=== PATIENT | female | born 1980 | race Caucasian/White ===

== ENCOUNTER 2017-01-08 19:30 | Emergency (ER) | payer OTHER ==
[2017-01-08 21:10] LABS: Bilirubin,Urine NEG (Negative); Blood,Urine LG (Negative); Ketones,Urine NEG (Negative); Leukocyte Esterase,Urine LG (Negative); Nitrite,Urine NEG (Negative); Urobilinogen,Urine < 2.0 mg/dL (<2.0)
[2017-01-08 21:15] LABS: WBC,Urine > 182.0 /HPF (0.0-6.0)
[2017-01-08] MEDS ORDERED: PYRIDIUM PO ONE (22:13)
[2017-01-08] MEDS ORDERED: LEVAQUIN PO ONE (22:13)
--- NOTE | 2017-01-08 22:14 | Emergency Department Report ---
ED General Adult HPI - General Chief complaint: Urogenital-Female Stated complaint: PAINFUL URINATION Time Seen by Provider: 01/08/17 21:56 Source: patient Mode of arrival: Ambulatory Limitations: No Limitations - History of Present Illness Initial comments: Patient comes into the ER today with complaints of dysuria and hematuria. Patient states that 2 days ago she started with some discomfort on urination that progressed to worsening discomfort and some blood in her urine yesterday. Patient denies any fever, vomiting, diarrhea, back pain. Patient does state that she feels pressure in her lower abdomen and pelvic region. Patient does note that prior to her symptoms starting, she did have intercourse with her . Patient states she also feels like she has to void frequently. Patient notes that she has had this happen before back in her country of [place] and she was given medicine to make it go away. -: days(s) (2) - Related Data Previous Rx's Medication Instructions Recorded Last Taken Type Ciprofloxacin HCl [Ciprofloxacin 500 mg PO Q12HR #14 tab 01/08/17 Unknown Rx TAB] Phenazopyridine [Pyridium] 200 mg PO TID #12 tab 01/08/17 Unknown Rx Allergies Allergy/AdvReac Type Severity Reaction Status Date / Time No Known Allergies Allergy Unverified 01/08/17 19:55 ED Review of Systems ROS: Stated complaint: PAINFUL URINATION Other details as noted in HPI Constitutional: denies: chills, fever Eyes: denies: eye pain, eye discharge, vision change ENT: denies: ear pain, throat pain Respiratory: denies: cough, shortness of breath, wheezing Cardiovascular: denies: chest pain, palpitations Endocrine: no symptoms reported Gastrointestinal: denies: abdominal pain, nausea, vomiting, diarrhea Genitourinary: urgency, dysuria, frequency, hematuria. denies: discharge Musculoskeletal: denies: back pain, joint swelling, arthralgia Skin: denies: rash, lesions Neurological: denies: headache, weakness, paresthesias Psychiatric: denies: anxiety, depression Hematological/Lymphatic: denies: easy bleeding, easy bruising ED Past Medical Hx - Past Medical History Previous Medical History?: No - Surgical History Past Surgical History?: No - Social History Smoking Status: Never Smoker Substance Use Type: None - Medications Home Medications: Home Medications Medication Instructions Recorded Confirmed Last Taken Type Ciprofloxacin HCl [Ciprofloxacin 500 mg PO Q12HR #14 tab 01/08/17 Unknown Rx TAB] Phenazopyridine [Pyridium] 200 mg PO TID #12 tab 01/08/17 Unknown Rx ED Physical Exam - General Limitations: No Limitations General appearance: alert, in no apparent distress - Head Head exam: Present: atraumatic, normocephalic - Eye Eye exam: Present: normal appearance - ENT ENT exam: Present: mucous membranes moist - Neck Neck exam: Present: normal inspection - Respiratory Respiratory exam: Present: normal lung sounds bilaterally. Absent: respiratory distress - Cardiovascular Cardiovascular Exam: Present: regular rate, normal rhythm, normal heart sounds. Absent: systolic murmur, diastolic murmur, rubs, gallop - GI/Abdominal GI/Abdominal exam: Present: soft, tenderness (very mild suprapubic discomfort), normal bowel sounds. Absent: distended, guarding, rebound, rigid - Extremities Exam Extremities exam: Present: normal inspection - Back Exam Back exam: Present: normal inspection. Absent: tenderness, CVA tenderness (R), CVA tenderness (L) - Neurological Exam Neurological exam: Present: alert, oriented X3, CN II-XII intact, normal gait - Psychiatric Psychiatric exam: Present: normal affect, normal mood - Skin Skin exam: Present: warm, dry, intact, normal color. Absent: rash ED Course Vital Signs 01/08/17 19:50 Temperature 98.3 F Pulse Rate 76 Respiratory 18 Rate Blood Pressure 120/74 O2 Sat by Pulse 100 Oximetry ED Medical Decision Making - Lab Data Lab Results 01/08/17 Range/Units 20:30 Urine Color Yellow (Yellow) Urine Turbidity Cloudy (Clear) Urine pH 7.0 (5.0-7.0) Ur Specific [place] 1.008 (1.003-1.030) Urine Protein 100 mg/dl (Negative) mg/dL Urine Glucose (UA) Neg (Negative) mg/dL Urine Ketones Neg (Negative) mg/dL Urine Blood Lg (Negative) Urine Nitrite Neg (Negative) Ur Reducing Substances Not Reportable Urine Bilirubin Neg (Negative) Urine Ictotest Not Reportable Urine Urobilinogen < 2.0 (<2.0) mg/dL Ur Leukocyte Esterase Lg (Negative) Urine WBC (Auto) > 182.0 H (0.0-6.0) /HPF Urine RBC (Auto) 72.0 (0.0-6.0) /HPF U Epithel Cells (Auto) 1.0 (0-13.0) /HPF Urine WBC Clumps 3+ /HPF Amorphous Crystals Few Urine HCG, Qual Negative (Negative) - Medical Decision Making Patient is nontoxic and hemodynamically stable. Urine results reviewed and discussed with patient in room. Patient does not have any CVA tenderness, upper abdominal pain, fever, or any signs or concerns suggestive of pyelonephritis or kidney stones. I believe patient's hematuria is related to her urinary tract infection. I have encouraged patient to continue drinking plenty of fluids to flush her system and to avoid after any intercourse in the future. Patient was given a dose of antibiotics as well as Pyridium here in the ER and I will continue her on outpatient antibiotics. Patient is in agreement with treatment plan and patient is stable for discharge. Critical care attestation.: If time is entered above; I have spent that time in minutes in the direct care of this critically ill patient, excluding procedure time. ED Disposition Clinical Impression: UTI (urinary tract infection) Disposition: DC-01 TO HOME OR SELFCARE Is pt being admited?: No Does the pt Need Aspirin: No Condition: Good Instructions: Urinary Tract Infection in Women (ED) Prescriptions: Ciprofloxacin HCl [Ciprofloxacin TAB] 500 mg PO Q12HR #14 tab Phenazopyridine [Pyridium] 200 mg PO TID #12 tab Referrals: PRIMARY CARE, [Primary Care Provider] - 3-5 Days Time of Disposition: 22:45
[2017-01-08 22:57] VITALS: BP 133/88
[2017-01-08] MEDS ORDERED: ZOFRAN ODT ONE (22:57)
[2017-01-08] MEDS ORDERED: ZOFRAN ODT PO ONE (22:57)
== END 2017-01-08 22:59 | disposition home or self-care (01) ==
LOC: ED 19:30
DX: N39.0 Urinary tract infection, site not specified (principal)
CPT/HCPCS: 81001; 81025; 99283; Q0162

== ENCOUNTER 2017-02-01 18:49 | Emergency (ER) | payer OTHER ==
[2017-02-01 21:22] LABS: Basophils % (Auto) 0.6 % (0.0-1.8); Eosinophils % (Auto) 4.8 % (0.0-4.3); Hematocrit 36.3 % (30.3-42.9); Hemoglobin 12.2 gm/dl (10.1-14.3); Mean Corpuscular HGB Conc 34 % (30-34); Mean Corpuscular Hemoglobin 31 pg (28-32); Mean Corpuscular Volume 93 fl (79-97); Platelet Count 225 K/mm3 (140-440); Red Cell Distribution Width 13.5 % (13.2-15.2); White Blood Count 9.4 K/mm3 (4.5-11.0)
[2017-02-01 21:36] LABS: Bilirubin,Urine NEG (Negative); Blood,Urine LG (Negative); Ketones,Urine NEG (Negative); Leukocyte Esterase,Urine LG (Negative); Nitrite,Urine NEG (Negative); Protein,Urine <15 mg/dL mg/dL (Negative); Urobilinogen,Urine < 2.0 mg/dL (<2.0)
[2017-02-01 21:41] LABS: WBC,Urine > 182.0 /HPF (0.0-6.0)
[2017-02-01 22:02] LABS: Alanine Aminotransferase 21 units/L (7-56); Albumin/Globulin Ratio 1.4 %; Alkaline Phosphatase 44 units/L (35-129); Anion Gap 13 mmol/L; BUN/Creatinine Ratio 21.42; Blood Urea Nitrogen 15 mg/dL (7-17); Calcium 8.7 mg/dL (8.4-10.2); Carbon Dioxide 24 mmol/L (22-30); Glucose 90 mg/dL (65-100); Lipase 33 units/L (13-60); Potassium 4.3 mmol/L (3.6-5.0); Sodium 135 mmol/L (137-145); Total Protein 6.9 g/dL (6.3-8.2)
[2017-02-01 22:06] LABS: Creatine Kinase 87 units/L (30-135)
[2017-02-01 22:10] LABS: Creatine Kinase MB < 1.0 ng/mL (0.0-4.0)
--- NOTE | 2017-02-02 00:58 | Emergency Department Report ---
ED Female HPI - General Chief complaint: Urogenital-Female Stated complaint: BLOOD IN URINE/BACK/ABD PAIN Source: patient Mode of arrival: Ambulatory Limitations: No Limitations - History of Present Illness Initial comments: 36 year old female presents to ED with dysuria, hematuria, lower back pain and pelvic pain x2-3 days. patient is stable, neurologically intact and in no acute distress. MD Complaint: dysuria, pelvic pain -: Gradual Location: suprapubic Radiation: non-radiating Severity: mild Quality: burning Consistency: constant Improves with: none Worsens with: urination Are you Now?: No Associated Symptoms: dysuria, hematuria. denies: vaginal discharge, vaginal bleeding, nausea/vomiting, fever/chills, headaches, loss of appetite, rash, seizure, shortness of breath, syncope, weakness - Related Data Sexually active: Yes Previous Rx's Medication Instructions Recorded Last Taken Type Ciprofloxacin HCl [Ciprofloxacin 500 mg PO Q12HR #14 tab 01/08/17 Unknown Rx TAB] Phenazopyridine [Pyridium] 200 mg PO TID #12 tab 01/08/17 Unknown Rx Nitrofurantoin [place]/M-Cryst 100 mg PO Q12HR #14 capsule 02/02/17 Unknown Rx [Macrobid CAP] Phenazopyridine [Pyridium] 100 mg PO TID #9 tab 02/02/17 Unknown Rx Allergies Allergy/AdvReac Type Severity Reaction Status Date / Time No Known Allergies Allergy Unverified 01/08/17 19:55 ED Review of Systems ROS: Stated complaint: BLOOD IN URINE/BACK/ABD PAIN Other details as noted in HPI Constitutional: denies: chills, fever Eyes: denies: eye pain, eye discharge, vision change ENT: denies: ear pain, throat pain Respiratory: denies: cough, shortness of breath, wheezing Cardiovascular: denies: chest pain, palpitations Endocrine: no symptoms reported Gastrointestinal: denies: abdominal pain, nausea, vomiting, diarrhea Genitourinary: urgency, dysuria, frequency, hematuria. denies: discharge Musculoskeletal: back pain, myalgia. denies: joint swelling Skin: denies: rash, lesions Neurological: denies: weakness, numbness, paresthesias, confusion, abnormal gait , vertigo Psychiatric: denies: anxiety, depression Hematological/Lymphatic: denies: easy bleeding, easy bruising ED Past Medical Hx - Past Medical History Previous Medical History?: No - Surgical History Past Surgical History?: No - Social History Smoking Status: Never Smoker Substance Use Type: None - Medications Home Medications: Home Medications Medication Instructions Recorded Confirmed Last Taken Type Ciprofloxacin HCl [Ciprofloxacin 500 mg PO Q12HR #14 tab 01/08/17 Unknown Rx TAB] Phenazopyridine [Pyridium] 200 mg PO TID #12 tab 01/08/17 Unknown Rx Nitrofurantoin [place]/M-Cryst 100 mg PO Q12HR #14 capsule 02/02/17 Unknown Rx [Macrobid CAP] Phenazopyridine [Pyridium] 100 mg PO TID #9 tab 02/02/17 Unknown Rx ED Physical Exam - General Limitations: No Limitations General appearance: alert, in no apparent distress - Head Head exam: Present: atraumatic, normocephalic - Eye Eye exam: Present: normal appearance, EOMI - ENT ENT exam: Present: mucous membranes moist - Neck Neck exam: Present: normal inspection - Respiratory Respiratory exam: Present: normal lung sounds bilaterally. Absent: respiratory distress - Cardiovascular Cardiovascular Exam: Present: regular rate, normal rhythm. Absent: systolic murmur, diastolic murmur, rubs, gallop - GI/Abdominal GI/Abdominal exam: Present: soft, normal bowel sounds. Absent: distended, tenderness, guarding, rebound - External exam: Present: normal external exam. Absent: erythema, swelling, lesions, bleeding Speculum exam: Present: normal speculum exam. Absent: vaginal discharge, cervical discharge, vaginal bleeding - Extremities Exam Extremities exam: Present: normal inspection, full ROM. Absent: tenderness - Back Exam Back exam: Present: normal inspection, full ROM. Absent: tenderness - Neurological Exam Neurological exam: Present: alert, oriented X3, normal gait - Psychiatric Psychiatric exam: Present: normal affect, normal mood - Skin Skin exam: Present: warm, dry, intact, normal color. Absent: rash ED Course Vital Signs 02/01/17 02/02/17 19:05 01:30 Temperature 98.6 F Pulse Rate 74 71 Respiratory 16 18 Rate Blood Pressure 112/79 Blood Pressure 125/77 [Left] O2 Sat by Pulse 100 99 Oximetry ED Medical Decision Making - Lab Data Result diagrams: 02/01/17 20:53 02/01/17 20:53 Labs 02/01/17 02/01/17 02/01/17 20:15 20:53 20:53 WBC 9.4 RBC 3.90 Hgb 12.2 Hct 36.3 MCV 93 MCH 31 MCHC 34 RDW 13.5 Plt Count 225 Lymph % (Auto) 21.4 [place] % (Auto) 4.7 Eos % (Auto) 4.8 H Baso % (Auto) 0.6 Lymph # 2.0 [place] # 0.4 Eos # 0.5 H Baso # 0.1 Seg Neutrophils % 68.5 Seg Neutrophils # 6.4 Sodium 135 L Potassium 4.3 Chloride 102.0 Carbon Dioxide 24 Anion Gap 13 BUN 15 Creatinine 0.7 Estimated GFR > 60 BUN/Creatinine Ratio 21.42 Glucose 90 Calcium 8.7 Total Bilirubin 0.20 AST 15 ALT 21 Alkaline Phosphatase 44 Total Creatine Kinase CK-MB (CK-2) CK-MB (CK-2) Rel Index Total Protein 6.9 Albumin 4.0 Albumin/Globulin Ratio 1.4 Lipase 33 Urine Color Straw Urine Turbidity Slightly-cloudy Urine pH 7.0 Ur Specific [place] 1.005 Urine Protein <15 mg/dl Urine Glucose (UA) Neg Urine Ketones Neg Urine Blood Lg Urine Nitrite Neg Urine Bilirubin Neg Urine Urobilinogen < 2.0 Ur Leukocyte Esterase Lg Urine WBC (Auto) > 182.0 H Urine RBC (Auto) 37.0 Urine HCG, Qual 02/01/17 02/02/17 20:53 00:12 WBC RBC Hgb Hct MCV MCH MCHC RDW Plt Count Lymph % (Auto) [place] % (Auto) Eos % (Auto) Baso % (Auto) Lymph # [place] # Eos # Baso # Seg Neutrophils % Seg Neutrophils # Sodium Potassium Chloride Carbon Dioxide Anion Gap BUN Creatinine Estimated GFR BUN/Creatinine Ratio Glucose Calcium Total Bilirubin AST ALT Alkaline Phosphatase Total Creatine Kinase 87 CK-MB (CK-2) < 1.0 CK-MB (CK-2) Rel Index 1.1 Total Protein Albumin Albumin/Globulin Ratio Lipase Urine Color Urine Turbidity Urine pH Ur Specific [place] Urine Protein Urine Glucose (UA) Urine Ketones Urine Blood Urine Nitrite Urine Bilirubin Urine Urobilinogen Ur Leukocyte Esterase Urine WBC (Auto) Urine RBC (Auto) Urine HCG, Qual Negative - Medical Decision Making 36 year old female presents to ED with lower back pain, dysuria, hematuria. patient has urine positive for UTI and negative preg test. labs were ordered by triage nurse prior to patient being seen by provider. patient will be treated with PO abx prescription. Critical care attestation.: If time is entered above; I have spent that time in minutes in the direct care of this critically ill patient, excluding procedure time. ED Disposition Clinical Impression: UTI (urinary tract infection) Qualifiers: Urinary tract infection type: acute cystitis Hematuria presence: with hematuria Qualified Code(s): N30.01 - Acute cystitis with hematuria Disposition: TO HOME OR SELFCARE Is pt being admited?: No Does the pt Need Aspirin: No Condition: Stable Instructions: Urinary Tract Infection in Women (ED) Prescriptions: Nitrofurantoin [place]/M-Cryst [Macrobid CAP] 100 mg PO Q12HR #14 capsule Phenazopyridine [Pyridium] 100 mg PO TID #9 tab Referrals: PRIMARY CARE, [Primary Care Provider] - 3-5 Days
[2017-02-02 04:05] VITALS: BP 125/77
== END 2017-02-02 01:42 | disposition home or self-care (01) ==
LOC: ED 18:49
DX: N30.01 Acute cystitis with hematuria (principal)
CPT/HCPCS: 36415; 80053; 81001; 81025; 82550; 82553; 83690; 85025; 87210; 87591

== ENCOUNTER 2017-04-11 10:55 | Emergency (ER) | payer OTHER ==
--- NOTE | 2017-04-11 11:20 | Emergency Department Report ---
HPI - General Chief Complaint: Headache Time Seen by Provider: 04/11/17 11:19 ED Past Medical Hx - Past Medical History Hx Asthma: Yes - Surgical History Additional Surgical History: tonsillectomy - Social History Smoking Status: Never Smoker Substance Use Type: None - Medications Home Medications: Home Medications Medication Instructions Recorded Confirmed Last Taken Type Ciprofloxacin HCl [Ciprofloxacin 500 mg PO Q12HR #14 tab 01/08/17 Unknown Rx TAB] Phenazopyridine [Pyridium] 200 mg PO TID #12 tab 01/08/17 Unknown Rx Nitrofurantoin [place]/M-Cryst 100 mg PO Q12HR #14 capsule 02/02/17 Unknown Rx [Macrobid CAP] Phenazopyridine [Pyridium] 100 mg PO TID #9 tab 02/02/17 Unknown Rx ED Review of Systems ROS: Stated complaint: HEADACHE/NAUSEA/VOMITING Other details as noted in HPI Physical Exam - Physical Exam Vital Signs: Vital Signs 04/11/17 11:02 Temperature 99.2 F Pulse Rate 84 Respiratory 16 Rate Blood Pressure 115/71 O2 Sat by Pulse 100 Oximetry ED Course Vital Signs 04/11/17 11:02 Temperature 99.2 F Pulse Rate 84 Respiratory 16 Rate Blood Pressure 115/71 O2 Sat by Pulse 100 Oximetry Critical care attestation.: If time is entered above; I have spent that time in minutes in the direct care of this critically ill patient, excluding procedure time. ED Disposition Condition: Stable
[2017-04-11] MEDS ORDERED: DUONEB *Not for PRN Use IH ONE (11:27)
--- NOTE | 2017-04-11 11:29 | Emergency Department Report ---
- General Chief Complaint: Headache Stated Complaint: HEADACHE/NAUSEA/VOMITING Time Seen by Provider: 04/11/17 11:19 Source: patient Mode of arrival: Ambulatory Limitations: No Limitations - History of Present Illness MD Complaint: cough, nasal congestion, sinus pain -: Gradual Severity: severe Quality: aching Consistency: constant Improves With: nothing Worsens With: deep breaths Associated Symptoms: myalgias, headache, nasal congestion, cough, shortness of breath, nausea, vomiting. denies: fever, chills, diaphoresis, rhinorrhea, sore throat, stiff neck, chest pain, abdominal pain, diarrhea, dysuria, rash, confusion, right sweats, weight loss, epistaxis, hoarseness, ear pain Treatments Prior to Arrival: other - Related Data Previous Rx's Medication Instructions Recorded Last Taken Type Ciprofloxacin HCl [Ciprofloxacin 500 mg PO Q12HR #14 tab 01/08/17 Unknown Rx TAB] Phenazopyridine [Pyridium] 200 mg PO TID #12 tab 01/08/17 Unknown Rx Nitrofurantoin [place]/M-Cryst 100 mg PO Q12HR #14 capsule 02/02/17 Unknown Rx [Macrobid CAP] Phenazopyridine [Pyridium] 100 mg PO TID #9 tab 02/02/17 Unknown Rx Allergies Allergy/AdvReac Type Severity Reaction Status Date / Time No Known Allergies Allergy Verified 04/11/17 11:02 ED Review of Systems ROS: Stated complaint: HEADACHE/NAUSEA/VOMITING Other details as noted in HPI Comment: Unobtainable due to pts medical conditions Constitutional: no symptoms reported, see HPI. denies: chills, diaphoresis, fever, malaise Eyes: as per HPI. denies: eye pain, eye discharge, vision change ENT: as per HPI, ear pain, throat pain, congestion. denies: dental pain, hearing loss, epistaxis Respiratory: no symptoms reported, see HPI, cough, wheezing. denies: orthopnea , shortness of breath, SOB with exertion, SOB at rest, stridor Cardiovascular: as per HPI. denies: chest pain, palpitations, dyspnea on exertion, orthopnea, edema, syncope, paroxysmal nocturnal dyspnea Endocrine: no symptoms reported, see HPI. denies: excessive sweating, flushing , intolerance to cold, intolerance to heat Gastrointestinal: as per HPI. denies: abdominal pain, nausea, vomiting Genitourinary: as per HPI. denies: urgency, dysuria Musculoskeletal: as per HPI. denies: back pain Skin: as per HPI. denies: rash, lesions Neurological: as per HPI, headache. denies: weakness Psychiatric: as per HPI, anxiety. denies: depression Hematological/Lymphatic: as per HPI. denies: easy bleeding ED Past Medical Hx - Past Medical History Hx Asthma: Yes - Surgical History Past Surgical History?: Yes Additional Surgical History: tonsillectomy - Social History Smoking Status: Never Smoker Substance Use Type: None - Medications Home Medications: Home Medications Medication Instructions Recorded Confirmed Last Taken Type Ciprofloxacin HCl [Ciprofloxacin 500 mg PO Q12HR #14 tab 01/08/17 Unknown Rx TAB] Phenazopyridine [Pyridium] 200 mg PO TID #12 tab 01/08/17 Unknown Rx Nitrofurantoin [place]/M-Cryst 100 mg PO Q12HR #14 capsule 02/02/17 Unknown Rx [Macrobid CAP] Phenazopyridine [Pyridium] 100 mg PO TID #9 tab 02/02/17 Unknown Rx ED Physical Exam - General Limitations: No Limitations General appearance: alert, anxious - Head Head exam: Present: atraumatic - Eye Eye exam: Present: PERRL - ENT ENT exam: Present: mucous membranes moist - Neck Neck exam: Present: normal inspection - Respiratory Respiratory exam: Present: normal lung sounds bilaterally, wheezes - Cardiovascular Cardiovascular Exam: Present: regular rate, normal rhythm - GI/Abdominal GI/Abdominal exam: Present: soft, normal bowel sounds - Rectal Rectal exam: Present: deferred - Extremities Exam Extremities exam: Present: normal inspection, full ROM, normal capillary refill. Absent: tenderness - Back Exam Back exam: Present: normal inspection, full ROM. Absent: tenderness, CVA tenderness (R), CVA tenderness (L), muscle spasm, paraspinal tenderness, vertebral tenderness - Neurological Exam Neurological exam: Present: alert, oriented X3, CN II-XII intact, normal gait, reflexes normal. Absent: abnormal gait - Psychiatric Psychiatric exam: Present: normal affect, anxious - Skin Skin exam: Present: warm, dry, intact, normal color ED Course Vital Signs 04/11/17 04/11/17 04/11/17 11:02 12:03 13:39 Temperature 99.2 F Pulse Rate 84 80 Pulse Rate [ 90 Bilateral Throughout] Respiratory 16 18 Rate Respiratory 18 Rate [Bilateral Throughout] Blood Pressure 115/71 Blood Pressure 118/72 [Left] O2 Sat by Pulse 100 100 Oximetry - Reevaluation(s) Reevaluation #1: 04/11/17 13:24 PT TO ER TODAY W NUMEROUS COMPLAINTS: GEE, EAR PAIN, WHEEZING, CHEST PAIN R THEN L; SINCE JUN NUMEROUS MDS HAD CT CHEST -RAD PER PT VSS NO FEVER ABC 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 SAID SHE MAY BE PREG LMP END JAN BUT SHES NOT HAD SEX SINCE LABS NOTED UA NOTED EACH TIME PT REASSURED OF A S/S SHE COMES UP WITH NEW S/S HAS PCP. On dc vss. no complaints. says she fails better after hearing not . dc home w dc poc ED Medical Decision Making - Lab Data Result diagrams: 04/11/17 11:44 04/11/17 11:44 - Radiology Data Radiology results: image reviewed - Differential Diagnosis ASTHMA/URTI V ANXIETY Critical care attestation.: If time is entered above; I have spent that time in minutes in the direct care of this critically ill patient, excluding procedure time. ED Disposition Clinical Impression: Anxiety, Asthma, Upper respiratory infection Disposition: DC-01 TO HOME OR SELFCARE Is pt being admited?: No Does the pt Need Aspirin: No Condition: Stable Instructions: Asthma (ED) Additional Instructions: HYDRATE WELL MEDS ORDERED STOP THE PHENERGAN GIVEN BY YOUR PCP CONTINUE PEPCID CONTINUE PRN INHALER CALL YOUR PCP ON THURSDAY AND FOLLOW UP WITH THEM LET THEM KNOW YOU WHERE SEEN IN ER TODAY YOUR LAB WORK IS NORMAL YOUR URINE IS NORMAL YOUR CHEST XRAY IS NORMAL YOU ARE NOT FOLLOW UP WITH PCP ON THURSDAY Referrals: PRIMARY MD RAMAN [Primary Care Provider] - 3-5 Days AYLEEN PICKERING MD [Staff Physician] - 3-5 Days Time of Disposition: 13:26
[2017-04-11 11:51] LABS: Eosinophils % (Auto) 1.6 % (0.0-4.3); Hematocrit 39.5 % (30.3-42.9); Mean Corpuscular HGB Conc 33 % (30-34); Mean Corpuscular Hemoglobin 31 pg (28-32); Mean Corpuscular Volume 94 fl (79-97); Platelet Count 226 K/mm3 (140-440); Red Blood Count 4.21 M/mm3 (3.65-5.03); Red Cell Distribution Width 13.8 % (13.2-15.2); White Blood Count 6.9 K/mm3 (4.5-11.0)
[2017-04-11 12:09] LABS: Albumin 4.2 g/dL (3.9-5); Albumin/Globulin Ratio 1.5 %; Alkaline Phosphatase 43 units/L (35-129); BUN/Creatinine Ratio 23; Blood Urea Nitrogen 16 mg/dL (7-17); Calcium 8.8 mg/dL (8.4-10.2); Carbon Dioxide 20 mmol/L (22-30); Glucose 89 mg/dL (65-100); Sodium 137 mmol/L (137-145)
[2017-04-11 12:16] LABS: Alanine Aminotransferase 11 units/L (7-56); Anion Gap 20 mmol/L; Potassium 4.3 mmol/L (3.6-5.0)
[2017-04-11 13:00] LABS: Bilirubin,Urine NEG (Negative); Blood,Urine NEG (Negative); Ketones,Urine 20 mg/dL (Negative); Leukocyte Esterase,Urine SM (Negative); Mucus,Urine FEW /HPF; Nitrite,Urine NEG (Negative); Protein,Urine <15 mg/dL mg/dL (Negative); Urobilinogen,Urine < 2.0 mg/dL (<2.0)
--- NOTE | 2017-04-11 13:34 | XRay Report ---
CHEST TWO VIEWS: 04/11/17 10:55:00 CLINICAL: Shortness of breath. COMPARISON: None FINDINGS: Normal heart and pulmonary vasculature. The lungs are mildly hyperexpanded and hyperlucent. No airspace disease or pleural effusion. The bones and soft tissues are normal. IMPRESSION: Pulmonary hyperinflation and otherwise normal.
[2017-04-11 13:39] VITALS: BP 118/72
== END 2017-04-11 13:44 | disposition home or self-care (01) ==
LOC: ED 10:55
DX: F41.9 Anxiety disorder, unspecified (principal); J45.909 Unspecified asthma, uncomplicated; J06.9 Acute upper respiratory infection, unspecified
CPT/HCPCS: 36415; 71020; 80053; 81001; 81025; 85025; 94640; 96372; 99284; J2930